=== PATIENT | male | born 1965 | race Two or more races ===

== ENCOUNTER 2021-07-01 04:30 | Emergency (ER) | payer OTHER ==
[~2021-07-01] VITALS: Ht 180.3 cm; Wt 86.0 kg
--- NOTE | 2021-07-01 04:53 | PHYS DOC ---
Adult General Chief Complaint Chief Complaint: MULTIPLE COMPLAINTS HPI HPI Patient is a 55 year old male with left flank pain that started about 24 hours ago. He has been nauseated and throwing up a couple times. Pain does radiate to the left lower quadrant down towards the groin. He has not had a history of kidney stones previously. He denies any blood in his urine but does admit to an increased urge to urinate. No fever or burning with urination. No cough, chest pain or shortness of breath. Review of Systems Review of Systems Constitutional: Denies fever Eyes: Denies change in visual acuity or eye pain HENT: Denies sore throat Respiratory: Denies shortness of breath Cardiovascular: Denies chest pain GI: Denies abd pain : Denies dysuria, admits to increased urge Musculoskeletal: Denies back or extremity injury Integument: Denies rash or skin lesions Neurologic: Denies headache, focal weakness or sensory changes All other systems were reviewed and found to be within normal limits, except as documented in this note. Current Medications Current Medications Current Medications Medications (Trade) Dose Ordered Sig/Destini Start Time Stop Time Status Last Admin Dose Admin Morphine Sulfate (Morphine Sulfate) 4 mg 1X ONCE 07/01/21 05:00 07/01/21 05:01 DC Ondansetron HCl (Zofran) 4 mg 1X ONCE 07/01/21 05:00 07/01/21 05:01 DC Allergies Allergies Allergies Coded Allergies Type Severity Reaction Last Updated Verified No Known Drug Allergies 07/01/21 No Physical Exam Physical Exam Constitutional: Well developed, well nourished, no acute distress, non-toxic appearance. HENT: Normocephalic, atraumatic, bilateral external ears normal, mucosa moist, nose normal. Eyes: EOMI, conjunctiva normal, no discharge. Neck: Normal range of motion, supple, no stridor, no meningeal signs. Cardiovascular: Regular rate and rhythm Lungs & Thorax: Bilateral breath sounds clear to auscultation Abdomen: Soft, no obvious masses, left CVA tenderness is present. Skin: Warm, dry, no erythema, no rash. Extremities: No tenderness, no cyanosis, no clubbing, ROM intact, no edema. Neurologic: Alert and oriented, normal motor function, normal sensory function, no focal deficits noted. Psychologic: Affect normal, judgement normal, mood normal. Current Patient Data Vital Signs Vital Signs Date Time Temp Pulse Resp B/P (MAP) Pulse Ox O2 Delivery O2 Flow Rate FiO2 07/01/21 04:45 97.5 78 16 131/83 (99) 97 Room Air 97.5 EKG EKG [] Radiology/Procedures Radiology/Procedures X-ray left foot is negative for fracture or other acute bony abnormality per my prelim interpretation [] Course & Med Decision Making Course & Med Decision Making Pertinent Labs and Imaging studies reviewed. (See chart for details) This is a 55-year-old male with great toe pain on the left foot. Sounds like he had a cold injury and this is potentially pain related to rewarming. Less likely would be gouty arthritis or something of that nature. Patient does not have any your Thiemann nor does he have a history of gout. There is no swelling. He was given Motrin with some relief. We will give him a prescription and have him follow-up with his primary care physician, return to the emergency department if symptoms become worse or other concerns arise, he is stable for discharge. Dragon Disclaimer Dragon Disclaimer This electronic medical record was generated, in whole or in part, using a voice recognition dictation system. Departure Departure Impression: Primary Impression: Great toe pain Disposition: HOME / SELF CARE / HOMELESS Condition: STABLE Patient Instructions: Toe Injuries and Amputations Scripts Ibuprofen (IBUPROFEN) 800 Mg Tablet 800 MG PO PRN TID PRN for PAIN, #20 TAB take with food or milk to avoid upsetting stomach Prov: LAURA APARICIO MD 07/01/21 LAURA APARICIO MD Jul 01, 2021 04:53
[2021-07-01] MEDS ORDERED: ONDANSETRON PF 4 MG/2 ML VIAL. IVP ONE (05:00)
[2021-07-01] MEDS ORDERED: MORPHINE SULFATE 4 MG/ML INJ. IVP ONE (05:00)
[2021-07-01 05:23] LABS: BASO % 0 % (0-3); EOS % 0 % (0-3); HEMATOCRIT 38.8 % (39.0-53.0); HEMOGLOBIN 13.2 g/dL (13.0-17.5); LYMPH # 0.8 x10^3/uL (1.0-4.8); LYMPH % 6 % (24-48); MEAN CORPUSCULAR HEMOGLOBIN 30 pg (25-35); MEAN CORPUSCULAR HGB CONC 34 g/dL (31-37); MEAN CORPUSCULAR VOLUME 87 fL (79-100); MONO # 0.5 x10^3/uL (0.0-1.1); MONO % 4 % (0-9); NEUT # 12.1 x10^3/uL (1.8-7.7); NEUT % 90 % (31-73); PLATELET COUNT 285 x10^3/uL (140-400); RED BLOOD COUNT 4.44 x10^6/uL (4.30-5.70); WHITE BLOOD COUNT 13.4 x10^3/uL (4.0-11.0)
[2021-07-01] MEDS ORDERED: IBUP-1060 PO (05:26)
[2021-07-01 05:32] LABS: BILIRUBIN,URINE NEGATIVE (NEG); CLARITY,URINE CLEAR; COLOR,URINE YELLOW; NITRITE,URINE NEGATIVE (NEG); PROTEIN,URINE NEGATIVE (NEG-TRACE)
[2021-07-01 05:37] LABS: CALCIUM 8.1 mg/dL (8.5-10.1); CREATININE 1.4 mg/dL (0.7-1.3); GFR 52.4; POTASSIUM 3.9 mmol/L (3.5-5.1)
[2021-07-01 05:42] LABS: BACTERIA,URINE FEW /HPF (0-FEW); WBC,URINE OCC /HPF (0-4)
[2021-07-01] MEDS ORDERED: KETOROLAC 15 MG/ML VIAL. IVP ONE (05:45)
[2021-07-01] MEDS ORDERED: diphenhydrAMINE 50 MG/ML VIAL IVP ONE (05:45)
--- NOTE | 2021-07-01 06:27 | RAD ---
CT ABDOMEN+PELVIS WO INDICATION: l flank pain EXAM: Noncontrast CT of the abdomen and pelvis. Coronal and sagittal reformatted images were perform ed. PQRS compliance statement: One or more of the following individualized dose reduction techniques were utilized for this examinat ion: 1. Automated exposure control 2. Adjustment of the mA and/or kV according to patient size 3. Use of iterative reconstruction technique COMPARISON: None FINDINGS: No free air, free fluid, or fluid collection. Lower chest: The visualized lower lungs demonstrate subsegmental atelectasis. Coronary artery atheros clerotic disease. ABDOMEN: Liver: Small left hepatic hypoattenuating lesion, probably cyst or hemangioma per Gallbladder and biliary: Normal gallbladder without radiopaque stone. Normal caliber bile ducts. Spleen: Normal spleen. Pancreas: The noncontrast pancreas is homogeneous in attenuation without peripancreatic inflammatory changes. Adrenal glands: Normal adrenal glands. Kidneys and ureters: Mild to moderate left hydroureteronephrosis with a 7 x 6 mm calculus in the dist al ureter. Asymmetric left perinephric and periureteral stranding. Additional nonobstructive left chetan al calculi. GI tract: The stomach is decompressed and poorly evaluated. Normal caliber small bowel. Wall thickeni ng of the colon extending from the hepatic flexure to the rectum. Normal appendix. Vascular structures: Normal caliber abdominal aorta. Mild aortoiliac atherosclerotic disease. Lymph nodes: No lymphadenopathy in the abdomen or pelvis. PELVIS: Genitourinary system: Urinary bladder is decompressed. SKELETAL STRUCTURES AND SOFT TISSUES: Degenerative changes of the spine. Grade 1 anterolisthesis at L 5-S1 due to bilateral L5 pars defects Small fat-containing left inguinal. IMPRESSION: 1. Mild to moderate left hydroureteronephrosis with a 7 x 6 mm calculus in the distal ureter. 2. Additional nonobstructive left renal calculi. 3. Mild distal colon wall thickening could relate to underdistention or potentially colitis. Electronically signed by: Isaiah Du MD (07/01/2021 6:24 AM) [facility]
[2021-07-01] MEDS ORDERED: IV NORMAL SALINE 1000ML BAG 1,000 ML IV ONE (06:45)
[2021-07-01] MEDS ORDERED: oxyCODONE/APAP 5/325 1 TAB TABLET PO ONE (08:00)
[2021-07-01] MEDS ORDERED: TAMS0.4C97 PO (08:01)
[2021-07-01] MEDS ORDERED: OXYC1TAB15 PO (08:01)
[2021-07-01] MEDS ORDERED: ONDA4TAB12 PO (08:01)
[2021-07-01 08:06] VITALS: BP 126/59
== END 2021-07-01 08:23 | disposition home or self-care (01) ==
LOC: ER 04:30
DX: N13.2 Hydronephrosis with renal and ureteral calculous obstruction (principal); M79.675 Pain in left toe(s)
CPT/HCPCS: 36415; 74176; 80048; 81001; 85025; 96374; 96375; 99285; J1200; J1885; J2270; J2405; J7030